=== PATIENT | male | born 1940 | race Caucasian/White ===

== ENCOUNTER → 2017-11-06 | Outpatient (CLI) | payer OTHER, BC | LOC: BMCIMAGING 07:17 | PROVIDERS: ATTEND Internal Medicine | DX: I71.4 Abdominal aortic aneurysm, without rupture (principal) ==

== ENCOUNTER → 2017-11-20 | Outpatient (CLI) | payer OTHER, BC | LOC: FIMAGING 19:21 | PROVIDERS: ATTEND Physical Medicine & Rehabilitation | DX: M48.061 Spinal stenosis, lumbar region without neurogenic claudication (principal); M89.38 Hypertrophy of bone, other site; M99.73 Connective tissue and disc stenosis of intervertebral foramina of lumbar region ==

== ENCOUNTER → 2018-05-09 | Outpatient (CLI) | payer OTHER, BC | LOC: BMCIMAGING 07:16 | PROVIDERS: ATTEND Urology | DX: N40.1 Benign prostatic hyperplasia with lower urinary tract symptoms (principal) ==

== ENCOUNTER → 2018-07-11 | Outpatient (CLI) | payer OTHER, BC | LOC: FIMAGING 11:40 | PROVIDERS: ATTEND Physical Medicine & Rehabilitation | DX: M47.892 Other spondylosis, cervical region (principal); M48.03 Spinal stenosis, cervicothoracic region; M53.82 Other specified dorsopathies, cervical region; E04.1 Nontoxic single thyroid nodule ==

== ENCOUNTER → 2018-11-08 | Outpatient (CLI) | payer OTHER, BC | LOC: FIMAGING 08:26 ==